=== PATIENT | female | born 2000 | race Caucasian/White ===

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

== ENCOUNTER → 2018-05-09 | Outpatient (CLI) | payer BC ==
[2018-05-09 16:10] LABS: Anion Gap 9 mmol/L; Blood Urea Nitrogen 8 mg/dL (7-17); Calcium 9.6 mg/dL (8.4-10.2); Carbon Dioxide 25 mmol/L (22-30); Chloride 104 mmol/L (98-107); Glucose 265 mg/dL (74-99); Potassium 4.9 mmol/L (3.5-5.1); Sodium 138 mmol/L (137-145)
== END | disposition home or self-care (01) ==
LOC: LABWHC1 15:08
PROVIDERS: ATTEND Orthopaedic Surgery Foot and Ankle Surgery
DX: Z01.818 Encounter for other preprocedural examination (principal); Z01.812 Encounter for preprocedural laboratory examination
CPT/HCPCS: 36415; 80048; 93005

== ENCOUNTER → 2018-11-27 | Outpatient (CLI) | payer BC ==
--- NOTE | 2018-11-27 22:44 | CONS ---
CONSULTATION DATE OF SERVICE: 11/27/2018 18-year-old who lady has [facility] for significant excessive daytime sleepiness. HISTORY OF PRESENT ILLNESS/SLEEP-WAKE EVALUATION: Patient referred significant sleepiness for about 2 years. SLEEP SCHEDULE: From 11 p.m. to 9 or 9:30 a.m. basically 7 days a week. FALLING ASLEEP: Sometimes she has problem with falling asleep. She has TV set in bedroom. DURING SLEEP: She usually sleeps on the side position. She denied any significant snoring. She wakes up from sleep 2 times with nocturia. No history of hypnagogical hallucinations, sleep paralysis or cataplexy. DURING THE DAY/SLEEP WAKE EVALUATION: In the morning, patient wakes up tired. Falling asleep during the day. [place] Sleepiness Scale is 10. Patient has episodes of anxiety. PAST MEDICAL HISTORY: Positive for insulin-dependent diabetes mellitus, several episodes of mononucleosis. MEDICATIONS: NovoLog, control pills. SOCIAL HISTORY: Negative for smoking or using alcohol. FAMILY HISTORY: Of asthma, snoring, diabetes, thyroid problems, prostate cancer, breast cancer and skin cancers. REVIEW OF SYSTEMS: Multiple awakenings from sleep with nocturia and excessive daytime sleepiness. Patient takes naps afternoon. Feels refreshed after naps. PHYSICAL EXAM: lady without distress. BP 117/76, HR 79, RR 16, height 5 feet 5 inches, weight 161.2 pounds, temperature 98.4, oxygen saturation at room air 97%. Oropharynx moderately low position of soft palate, Mallampati 2-3. Neck Supple, no JVD. Thyroid is not palpable. LUNGS Clear to percussion and to auscultation. Good air exchange. No wheezing or rhonchi. HEART S1, S2 regular. No murmurs, gallops, or rubs. ABDOMEN Soft and nontender. Bowel sounds are present. No organomegaly appreciated. EXTREMITIES No clubbing or cyanosis. HEAD PACKAGER Awake, alert, and oriented X3. Cranial nerves 2 to 7 intact. There is no fasciculation or atrophy. noted. No focal deficits observed. IMPRESSION: 1. Symptoms of excessive daytime sleepiness for about 2 years. Differential diagnosis includes hypersomnia and narcolepsy without cataplexy. 2. The patient wakes up from sleep 2 times. Moderately low position of soft palate. Differential diagnosis should include obstructive sleep apnea-hypopnea syndrome. 3. Insulin-dependent diabetes mellitus. 4. Status post 3 episodes of mononucleosis. PLAN: 1. Home sleep apnea test to check the patient's breathing during the sleep. 2. If sleep study will be negative for any obstructive respiratory abnormalities, polysomnogram with following multiple sleep latency test for objective evaluation of patient symptoms of excessive daytime sleepiness and to check for any sleep onset REM periods for diagnosis of hypersomnia and narcolepsy. 3. Sleep hygiene with regular time in bed for at least 9 hours. 4. No driving if feeling sleepiness. Thank you very much for referring this patient for consultation. Sincerely, Mariano Hoang MD, PhD, FAASM Diplomat of [employer] [place] [facility] [place] MMODL / NATALIE: [id number] /
== END ==
LOC: SLEEP 14:48
PROVIDERS: ATTEND Internal Medicine
DX: R40.0 Somnolence (principal); R35.1 Nocturia; E11.9 Type 2 diabetes mellitus without complications; B27.90 Infectious mononucleosis, unspecified without complication; Z79.4 Long term (current) use of insulin
CPT/HCPCS: 99211

== ENCOUNTER → 2020-03-11 | Outpatient (CLI) | payer BC | END | disposition home or self-care (01) | LOC: LABWHC1 10:24 | PROVIDERS: ATTEND Family Medicine | DX: Z20.828 Contact with and (suspected) exposure to other viral communicable diseases (principal) | CPT/HCPCS: U0003; C9803 ==

== ENCOUNTER → 2021-10-05 | Outpatient (CLI) | payer BC | END | disposition home or self-care (01) | LOC: LABWHC1 10:12 | PROVIDERS: ATTEND Nurse Practitioner Family | DX: Z13.9 Encounter for screening, unspecified (principal) | CPT/HCPCS: 36415; 86480 ==

== ENCOUNTER → 2023-03-07 | Outpatient (CLI) | payer BC ==
--- NOTE | 2023-03-10 20:17 | MR ---
EXAMINATION TYPE: MR wrist RT wo con DATE OF EXAM: 03/07/2023 COMPARISON: NONE HISTORY: 23-year-old female [id number], Pain posterior right wrist, unsure of how pain started TECHNIQUE: Multiplanar, multisequence images of the right wrist were obtained without IV contrast. FINDINGS: Positive ulnar variance is noted. The TFC appears intact. However, there is edema within the ulnar pr oximal aspect of the lunate bone. No discrete irregularity of the underlying subchondral bone and no cystic change at this time. Otherwise, the radiocarpal and distal radial ulnar joint as well as the midcarpal compartment appear intact. No evidence for acute or healing fracture. The dorsal extensor and volar flexor tendons appear satisfactory. The median nerve at the level of the distal wrist crease measures at the upper limits of normal in th ickness and 12 sq mm. Questionable clinical significance. The scapholunate ligament and lunotriquetral ligaments appear intact. Physiologic wrist joint fluid. IMPRESSION: 1. Positive ulnar variance is suggested. In addition, there is mild edema within the ulnar proximal a spect of the lunate bone. Correlate for ulnar impaction syndrome. 2. No associated TFC tear or additional bony changes seen at this time.
== END | disposition home or self-care (01) ==
LOC: RADMRIMAIN 07:26
PROVIDERS: ATTEND Orthopaedic Surgery
DX: M25.531 Pain in right wrist (principal); R60.0 Localized edema

== ENCOUNTER → 2023-10-08 | Outpatient (CLI) | payer BC ==
[2023-10-08 16:03] LABS: ALT 22 U/L (8-44); AST 14 U/L (13-35); Albumin 4.2 g/dL (3.8-4.9); Albumin/Globulin Ratio 1.62 Ratio (1.60-3.17); Alkaline Phosphatase 82 U/L (41-126); Amylase 39 U/L (23-121); BUN/Creat Ratio 19.29 Ratio (12.00-20.00); Blood Urea Nitrogen 13.5 mg/dL (9.0-27.0); Calcium 9.4 mg/dL (8.7-10.3); Carbon Dioxide 25.7 mmol/L (21.6-31.8); Chloride 101 mmol/L (96-109); Chol/HDL Ratio 2.41 Ratio; Globulin 2.6 g/dL (1.6-3.3); Glucose 186 mg/dL (70-110); LDL Cholesterol,Calculated 88.8 mg/dL (0.0-131.0); Lipase 19 U/L (14-63); Potassium 4.5 mmol/L (3.5-5.5); Sodium 137 mmol/L (135-145); T4, Free (Free Thyroxine) 0.76 ng/dL (0.80-1.80); Total Bilirubin 0.3 mg/dL (0.3-1.2); Total Protein 6.8 g/dL (6.2-8.2); VLDL Calculation 7.66 mg/dL (5.00-40.00)
[2023-10-08 16:20] LABS: Basophils # (A) 0.06 X 10*3/uL (0.00-0.10); Basophils % (A) 1.4 %; Eosinophils # (A) 0.19 X 10*3/uL (0.04-0.35); Eosinophils % (A) 4.5 %; HCT 40.6 % (37.2-46.3); HGB 13.4 g/dL (12.0-15.0); Lymphocytes # (A) 1.48 X 10*3/uL (0.90-5.00); Lymphocytes % (A) 34.9 %; MCH 30.8 pg (27.0-32.0); MCV 93.3 FL (80.0-97.0); Mean Platelet Volume 9.7 FL (9.5-12.2); Monocytes # (A) 0.31 X 10*3/uL (0.20-1.00); Monocytes % (A) 7.3 %; NRBC Per 100 WBC 0 X 10*3/uL (0.00-0.01); Neutrophils # (A) 2.19 X 10*3/uL (1.80-7.70); Neutrophils % (A) 51.7 %; Platelet Count 393 X 10*3/uL (140-440); RBC 4.35 X 10*6/uL (4.10-5.20); RDW 11.8 % (11.5-14.5); WBC 4.24 X 10*3/uL (4.50-10.00)
== END | disposition home or self-care (01) ==
LOC: LABWHC1 10:24
PROVIDERS: ATTEND Family Medicine
DX: E10.9 Type 1 diabetes mellitus without complications (principal); E05.90 Thyrotoxicosis, unspecified without thyrotoxic crisis or storm; E55.9 Vitamin D deficiency, unspecified; R11.0 Nausea
CPT/HCPCS: 36415; 80053; 80061; 82150; 82306; 83690; 84439; 84443; 84481; 85025

== ENCOUNTER → 2023-12-27 | Outpatient (CLI) | payer BC ==
[2023-12-27 14:38] LABS: BUN/Creat Ratio 8.25 Ratio (12.00-20.00); Blood Urea Nitrogen 6.6 mg/dL (9.0-27.0); Calcium 9.8 mg/dL (8.7-10.3); Carbon Dioxide 21.9 mmol/L (21.6-31.8); Chloride 112 mmol/L (96-109); Glucose 163 mg/dL (70-110); Potassium 4.3 mmol/L (3.5-5.5); Sodium 146 mmol/L (135-145)
== END | disposition home or self-care (01) ==
LOC: LABWHC1 09:08
PROVIDERS: ATTEND Family Medicine Hospice and Palliative Medicine
DX: K11.7 Disturbances of salivary secretion (principal)
CPT/HCPCS: 36415; 80048

== ENCOUNTER → 2024-03-04 | Outpatient (CLI) | payer BC ==
--- NOTE | 2024-03-04 12:51 | NM ---
EXAMINATION TYPE: NM gastric emptying static DATE OF EXAM: 03/04/2024 COMPARISON: NONE CLINICAL INDICATION: Female, 24 years old with history of R11.0 NAUSEA; Following administration of 2.0 mCi Tc 99m Sulfur Colloid with 3 ounces of eggs, 1/2 piece of toast w ith butter & 7 ounces of water, projection images of the abdomen were obtained 10 minutes post ingest ion. Patient Emptying Values 1 Hour 50 % 2 Hours 82 % 3 Hours 98 % 4 Hours 99 % Gastroesophagel reflux: None IMPRESSION: Gastric emptying: Within normal limits Gastroesophageal reflux: None identified
== END | disposition home or self-care (01) ==
LOC: RADNMMAIN 06:50
PROVIDERS: ATTEND Family Medicine
DX: R11.0 Nausea (principal)
CPT/HCPCS: 78264; A9541

== ENCOUNTER → 2025-01-06 | Outpatient (CLI) | payer OTHER ==
[2025-01-06 15:36] LABS: Chol/HDL Ratio 2.12 Ratio; LDL Cholesterol,Calculated 81.6 mg/dL (0.0-131.0); Magnesium 1.8 mg/dL (1.5-2.4)
[2025-01-06 15:37] LABS: ALT 23 U/L (8-44); AST 19 U/L (13-35); Albumin 4.1 g/dL (3.8-4.9); Albumin/Globulin Ratio 1.78 Ratio (1.60-3.17); Alkaline Phosphatase 79 U/L (41-126); Blood Urea Nitrogen 16.4 mg/dL (9.0-27.0); Calcium 9.4 mg/dL (8.7-10.3); Carbon Dioxide 23.2 mmol/L (21.6-31.8); Chloride 102 mmol/L (96-109); Globulin 2.3 g/dL (1.6-3.3); Glucose 122 mg/dL (70-110); Potassium 4.6 mmol/L (3.5-5.5); Sodium 136 mmol/L (135-145); T4, Free (Free Thyroxine) 0.76 ng/dL (0.80-1.80); Total Bilirubin 0.6 mg/dL (0.3-1.2); Total Protein 6.4 g/dL (6.2-8.2)
[2025-01-06 18:02] LABS: Microalbumin Creatinine Ratio <15 mg/g Cr (0-30); Urine Creatinine 79.8 mg/dL (28.0-217.0)
== END | disposition home or self-care (01) ==
LOC: LABWHC1 09:29
PROVIDERS: ATTEND Internal Medicine Endocrinology, Diabetes & Metabolism
DX: E10.65 Type 1 diabetes mellitus with hyperglycemia (principal); E03.8 Other specified hypothyroidism
CPT/HCPCS: 36415; 80053; 80061; 82043; 82570; 82607; 83735; 84439; 84443